=== PATIENT | male | born 1985 | race Two or more races ===

== ENCOUNTER 2017-09-09 11:41 | Day surgery (SDC) | payer OTHER ==
[~2017-09-09 11:41] MED LIST: Buffered Lidocaine 0.9% SYRIN* 5 ML/SYR SYRINGE INTRADERM ONE; Dexamethasone IV* 4 MG/ML 1 ML (4 MG) IV SLOW PU ONE
[2017-09-09] MEDS ORDERED: ceFAZolin 2 GM (*##) 2 GM/100 ML BAG USE CEFA2SOL IVPB ONE (12:23)
[2017-09-09] MEDS ORDERED: Dexamethasone IV* 4 MG/ML 1 ML (4 MG) ONE (12:23)
[2017-09-09] MEDS ORDERED: Bupivacaine 0.25% SDV* 30 ML ONE (14:48)
[2017-09-09] MEDS ORDERED: Levalbuterol 0.63MG/3ML NEB* UNIT OF USE INH ONE ×2 (14:53→14:58)
[2017-09-09] MEDS ORDERED: Famotidine IV* 10 MG/ML 2 ML (20 mg) IV SLOW PU ONE (14:53)
[2017-09-09] MEDS ORDERED: HYDROmorphone INJ* 1 MG/ML CARPUJECT SYRINGE IV PRN (14:54)
[2017-09-09] MEDS ORDERED: fentaNYL* 50 MCG/ML 2 ML VIAL (100 MCG VIAL) IV PRN (14:54)
[2017-09-09] MEDS ORDERED: DiMENhydriNATE IV* 50 MG/ML VIAL IV PUSH PRN (14:54)
[2017-09-09] MEDS ORDERED: Naloxone* 0.4 MG/ML 1 ML VIAL IV PRN (14:54)
[2017-09-09] MEDS ORDERED: oxyCODONE/Acetamin 5/325 MG* TAB PO PRN (14:54)
[2017-09-09] MEDS ORDERED: Ondansetron INJ* 2 MG/ML VIAL IV PRN (14:54)
[2017-09-09] MEDS ORDERED: Famotidine IV* 10 MG/ML 2 ML (20 mg) ONE (14:57)
[2017-09-09] MEDS ORDERED: Ketorolac INJ* 30 MG/ML 1 ML VIAL ONE (15:00)
[2017-09-09] MEDS ORDERED: Midazolam* 1 MG/ML 5 ML VIAL (5 MG) ONE (15:00)
[2017-09-09] MEDS ORDERED: Ondansetron INJ* 2 MG/ML VIAL ONE ×2 (15:00→18:20)
[2017-09-09] MEDS ORDERED: Lidocaine 2% PF * 5 ML VIAL ONE (15:00)
[2017-09-09] MEDS ORDERED: fentaNYL* 50 MCG/ML 5 ML VIAL (250 MCG VIAL) ONE (15:00)
[2017-09-09] MEDS ORDERED: Propofol* 10 MG/ML 20 ML BTL IV PUSH ONE (15:00)
[2017-09-09] MEDS ORDERED: fentaNYL* 50 MCG/ML 2 ML VIAL (100 MCG VIAL) ONE (16:38)
[2017-09-09] MEDS ORDERED: DiMENhydriNATE IV* 50 MG/ML VIAL ONE (17:46)
[2017-09-09] MEDS ORDERED: Scopolamine 1.5 mg* PATCH ONE (17:51)
[2017-09-09 18:27] VITALS: BP 141/78
--- NOTE | 2017-09-10 15:39 | RAD ---
INDICATION: Left thumb, history of osteoarthritis of the first digit COMPARISONS: January 08, 2017 TECHNIQUE: Fluoroscopy was provided for a surgical procedure. Total fluoroscopy time is: 40 seconds FINDINGS: Spot images demonstrate fixation across the first CMC joint with a fixation plate and screws. IMPRESSION: FLUOROSCOPY WAS PROVIDED FOR A SURGICAL PROCEDURE CPT II Codes: 6045F
--- NOTE | 2017-09-21 15:29 | OP ---
DATE OF OPERATION: 09/09/17 - [facility] DATE OF : 83 SURGEON: Ilan Rowe MD. ACCOUNTS RECEIVABLE ACCOUNTANT: LORETTA Julio. An sourcing assistant was needed for the entirety of the procedure to aid in positioning of the arm and retraction. ANESTHESIOLOGIST: Ayo Miranda MD ANESTHESIA: General. 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 OPERATIVE PROCEDURE: Left thumb carpometacarpal fusion using compression technique. EBL: 2 mL. COMPLICATIONS: None. INDICATIONS: Mayco has had progression of pain on the left basal joint over at least the last 4 to 5 years since his injury. He had prior workup with Dr. Christina Mcclelland which showed a Moon's fracture malunion. I have been following with Mayco for quite some time. He has had a couple of surgery dates which he has felt ultimately the thumb base will not stop bothering him and so he presented for surgery. He understands the risk of nonunion. FINDINGS: Significant degeneration with fixed subluxation of the base of the metacarpal as expected. DESCRIPTION OF PROCEDURE: Mayco was seen in the preoperative holding area. The correct side, site, and procedure were identified. We came back to the operating room where the arm was prepped and draped in the usual fashion. A time-out was performed. I exsanguinated the arm with Esmarch and the tourniquet was inflated to 250 mmHg. I made a longitudinal incision over the dorsum of the left arm CMC joint area. Dissection was carried down taking care to preserve the traversing sensory nerves. There was a vein that was cauterized. The periosteum off the dorsum of the metacarpal to release the CMC joint was opened and periosteum off the trapezium was released as well. Full-thickness flaps were raised. The metacarpal base was noted to be subluxated off the trapezium and united in a very degenerative bony bridge between the prior Moon's fragment and the rest of the metacarpal was present. I went ahead and took the saw blade and excised a portion of the base of the metacarpal and the subchondral bone off the trapezium in such a way that the two surfaces opposed very nicely. The fusion was pinned into place. The alignment was checked. I then placed one 2.0 mm Synthes screw in lag type fashion across the CMC fusion surface. There was excellent apposition of the fusion surfaces. I went ahead and at this point selected a 2.0 mm lateral plate off the Synthes variable angle handset. This was placed in place and then secured with two variable angle locking screws proximally and cortical screws distally. Final fluoroscopic imaging showed good screw lengths and good apposition across the fusion surface. Everything was looking good, so we irrigated out the wound. The periosteal capsular flaps were closed over the plate with some 4-0 Vicryl suture. The skin was closed with 4-0 nylon suture. The wound was dressed with Xeroform, 4x4, sterile Webril , and a thumb spica splint was placed. Tourniquet was deflated and he was taken to the recovery room in stable condition. [id number]/[id number] #: [id number] CATHLEEN
== END 2017-09-09 18:50 | disposition home or self-care (01) ==
LOC: OREAST 11:41
PROVIDERS: ATTEND Orthopaedic Surgery Hand Surgery
DX: M18.2 Bilateral post-traumatic osteoarthritis of first carpometacarpal joints (principal); S00-T88 Injury, poisoning and certain other consequences of external causes; J45.909 Unspecified asthma, uncomplicated; I10 Essential (primary) hypertension; Z87.891 Personal history of nicotine dependence; Z88.8 Allergy status to other drugs, medicaments and biological substances
CPT/HCPCS: 76000; A9270-GY; C1713; C1776; J1100; J1240; J1885; J2250; J2405; J2704; J3010; J7614

== ENCOUNTER 2018-01-20 12:01 | Emergency (ER) | payer OTHER ==
--- NOTE | 2018-01-20 13:28 | UC ---
Complaint Male HPI - HPI Summary HPI Summary: 32 yo male presents with penis swelling for the last 2 days. He tells me that 2 days ago he had "intense anal sex" with his girlfriend, unprotected, and later that day noticed his penis was swollen. Says he has been abstaining from any further sexual activity and icing the area, which has improved it significantly , but he still feels it is swollen. Not painful. Denies fever, chills, discharge , dysuria, or testicular pain. He is not interested in any STD testing today. - History of Current Complaint Stated Complaint: PERSONAL Time Seen by Provider: 01/20/18 13:28 Hx Obtained From: Patient Onset/Duration: Sudden Onset Timing: Constant Severity Currently: None - Allergies/Home Medications Allergies/Adverse Reactions: Allergies Allergy/AdvReac Type Severity Reaction Status Date / Time environmental Allergy Hives Uncoded 01/20/18 13:29 Home Medications: Home Medications traMADol TAB* [Ultram*] 50 mg PO Q6HR PRN 01/20/18 [History Confirmed 01/20/18] PMH/Surg Hx/FS Hx/Imm Hx Respiratory History: Asthma - Surgical History Surgical History: Yes Surgery Procedure, Year, and Place: APPENDECTOMY as a young child - Family History Known Family History: Positive: None - Social History Lives: With Family Alcohol Use: None Substance Use Type: Marijuana Substance Use Comment - Amount & Last Used: coping for pain Smoking Status (MU): Never Smoked Tobacco Review of Systems Constitutional: Negative Skin: Negative Respiratory: Negative Cardiovascular: Negative Gastrointestinal: Negative Genitourinary: Other - Penile swelling Neurovascular: Negative Neurological: Negative Psychological: Negative All Other Systems Reviewed And Are Negative: Yes Physical Exam - Summary Physical Exam Summary: GENERAL: NAD. WDWN. No pain distress. SKIN: No rashes, sores, lesions, or open wounds. NECK: Supple. Nontender. No lymphadenopathy. CHEST: CTAB. No r/r/w. No accessory muscle use. Breathing comfortably and in no distress. CV: RRR. Without m/r/g. Pulses intact. Brisk cap refill. ABDOMEN: Soft. NTTP. No distention or guarding. No organomegaly. No CVA tenderness. Bowel sounds present NEURO: Alert. CN II-XII grossly intact. PSYCH: Age appropriate behavior. Triage Information Reviewed: Yes Vital Signs: Vital Signs: Temp Pulse Resp BP Pulse Ox 98.4 F 87 14 125/79 97 01/20/18 13:25 01/20/18 13:25 01/20/18 13:25 01/20/18 13:25 01/20/18 13:25 Male Genital Exam: Positive: Normal Genitalia, Normal Prostate, No Hernia, Other - uncircumcised. No obvious edema. Negative: Bleeding, Erythema, Hernia Mass, Inguinal Tenderness, Lesions, Testicular Tenderness (R), Testicular Tenderness (L), Urethral Discharge Complaint Male Course/Dx - Course Course Of Treatment: Suspect superficial skin irritation to penis s/p intercourse. Pt is very anxious and would like treatment with an antibiotic "to be safe". - Differential Dx/Diagnosis Provider Diagnoses: Penile irritation s/p intercourse Discharge - Sign-Out/Discharge Documenting (check all that apply): Patient Departure - Discharge Plan Condition: Stable Disposition: HOME Prescriptions: Cephalexin CAP* [Keflex CAP*] 500 mg PO BID #14 cap Patient Education Materials: Safe Sex (ED) Referrals: Ilan Reina MD [Primary Care Provider] - Additional Instructions: If you develop a fever, shortness of breath, chest pain, new or worsening symptoms - please call your PCP or go to the ED. - Billing Disposition and Condition Condition: STABLE Disposition: Home
[2018-01-20 13:31] VITALS: BP 125/79
== END 2018-01-20 13:49 | disposition home or self-care (01) ==
LOC: UCCORT 12:01
DX: N48.89 Other specified disorders of penis (principal)
CPT/HCPCS: 99212; G0463

== ENCOUNTER 2018-02-09 12:02 | Emergency (ER) | payer OTHER ==
[2018-02-09 12:57] VITALS: BP 120/77
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
== END 2018-02-09 14:11 | disposition home or self-care (01) ==
LOC: UCCORT 12:02
DX: S39.848A Other specified injuries of external genitals, initial encounter (principal); N50.89 Other specified disorders of the male genital organs; X50.0XXA Overexertion from strenuous movement or load, initial encounter; Y93.89 Activity, other specified; Y92.003 Bedroom of unspecified non-institutional (private) residence as the place of occurrence of the external cause
CPT/HCPCS: 81003; 87491; 87591; 99212; G0463